=== PATIENT | male | born 1955 | race Caucasian/White ===

== ENCOUNTER 2016-06-20 07:38 | Day surgery (SDC) | payer BC ==
[2016-06-20] MEDS ORDERED: ceFAZolin 2 GM in Premix Bag 1 BAG IV ONE (08:00)
[2016-06-20] MEDS ORDERED: Bupivacaine 0.25%/EPINEPHrine 1:200,000 10 ML SDV INJECT ONE (08:00)
[2016-06-20] MEDS ORDERED: Lactated Ringers 1,000 ML IV SCH (08:00)
[2016-06-20] MEDS ORDERED: Dexamethasone/Tobramycin 0.1-0.3% Ophth Oint 3.5 GM Tube EYEBOTH SCH (08:00)
[2016-06-20] MEDS ORDERED: Acetaminophen/HYDROcodone 325-5 MG Tab PO PRN (08:00)
--- NOTE | 2016-06-20 08:26 | PCM.PREANE ---
Preanesthetic Assessment - Anesthesia/Transfusion/Family Hx Anesthesia History: Prior Anesthesia Without Reaction Transfusion History: No Prior Transfusion(s) Intubation History: Unknown - Review of Systems General: No Symptoms Pulmonary: No Symptoms Cardiovascular: No Symptoms Gastrointestinal: No symptoms Neurological: No Symptoms Other: Reports: None - Physical Assessment Height: 5 ft 8 in Weight: 155 lb ASA Class: 1 Mental Status: Alert & Oriented x3 Airway Class: Mallampati = 1 Dentition: Reports: Normal Dentition Thyro-Mental Finger Breadths: 3 Mouth Opening Finger Breadths: 3 ROM/Head Extension: Full Lungs: Clear to auscultation, Normal respiratory effort Cardiovascular: Regular Rate, Regular Rhythm, No Murmurs - Allergies Allergies/Adverse Reactions: Allergies Allergy/AdvReac Type Severity Reaction Status Date / Time No Known Allergies Allergy Verified 06/17/16 11:07 - Blood Blood Available: No Product(s) Available: None - Acknowledgements Anesthesia Type Planned: MAC (local by surgeon) Pt an Appropriate Candidate for the Planned Anesthesia: Yes Alternatives and Risks of Anesthesia Discussed w Pt/Guardian: Yes Pt/Guardian Understands and Agrees with Anesthesia Plan: Yes Additional Comments: Understands delay for frozen section ensuring excision margins. PreAnesthesia Questionnaire - Past Health History Medical/Surgical History: Denies Medical/Surgical History HEENT History: Reports: Allergic rhinitis Other HEENT History: wears glasses Cardiovascular History: Reports: None Respiratory History: Reports: None Gastrointestinal History: Reports: None Genitourinary History: Reports: Renal calculus Other Genitourinary History: passed without intervention Musculoskeletal History: Reports: Other (see below) Other Musculoskeletal History: shoulder pain Neurological History: Reports: Brain injury, Headaches, chronic Other Neuro History: headaches at the time of subdural hematoma Psychiatric History: Reports: None Endocrine/Metabolic History: Reports: None Hematologic History: Reports: None Immunologic History: Reports: None Oncologic (Cancer) History: Reports: None Dermatologic History: Reports: None - Past Surgical History Head Surgeries/Procedures: Reports: None HEENT Surgical History: Reports: LASIK, Naso-sinus surgery Cardiovascular Surgical History: Reports: None Respiratory Surgical History: Reports: None GI Surgical History: Reports: Appendectomy Male Surgical History: Reports: None Endocrine Surgical History: Reports: None Neurological Surgical History: Reports: Other (see below) Other Neurological Surgeries/Procedures: drainage of a Subdural Hematoma in 2010 Musculoskeletal Surgical History: Reports: None Oncologic Surgical History: Reports: None Dermatological Surgical History: Reports: None - SUBSTANCE USE Smoking Status *Q: Never Smoker Tobacco Use Within Last Twelve Months: No Second Hand Smoke Exposure: No Days Per Week of Alcohol Use: 0 Recreational Drug Use History: No - HOME MEDS Home Medications: Home Meds Aspirin [Adult Low Dose Aspirin EC] 81 mg PO DAILY 06/17/16 [History] Tadalafil [Cialis] 5 mg PO ASDIRECTED PRN 06/17/16 [History] - CURRENT (IN HOUSE) MEDS Current Meds: Current Medications Hydrocodone Bitart/Acetaminophen (Harrah 325-5 Mg) 1 tab PO Q4H PRN PRN Reason: Pain Lactated Ringer's (Ringers, Lactated) 1,000 mls @ 125 mls/hr IV ASDIRECTED DENISE Cefazolin Sodium/Dextrose 2 gm (/ Premix) 50 mls @ 100 mls/hr IV ONETIME ONE Stop: 06/20/16 08:29 Tobramycin/Dexamethasone (Tobradex Ophth Oint) 1 gm EYEBOTH Q4H DENISE Discontinued Medications Bupivacaine HCl/Epinephrine Bitart (Marcaine 0.25%/Epinephrine 1:200,000) 10 ml INJECT ONETIME ONE Stop: 06/20/16 08:01 Preanesthetic Assessment - ANESTHESIA/TRANSFUSION/FAMILY HX Family History of Anesthesia Reaction: No - PHYSICAL ASSESSMENT Height: 5 ft 8 in Weight: 155 lb - ALLERGIES Allergies/Adverse Reactions: Allergies Allergy/AdvReac Type Severity Reaction Status Date / Time No Known Allergies Allergy Verified 06/17/16 11:07
[2016-06-20] MEDS ORDERED: Ondansetron 4 MG/2 ML SDV ONE (08:32)
[2016-06-20] MEDS ORDERED: fentaNYL 100 MCG/2 ML SDV ONE ×2 (08:33→09:04)
[2016-06-20] MEDS ORDERED: Midazolam 1 MG/ML 2 ML SDV ONE ×2 (08:33→09:28)
[2016-06-20] MEDS ORDERED: Propofol 200 MG/20 ML SDV ONE ×2 (08:33)
[2016-06-20] MEDS ORDERED: Bupivacaine 0.25%/EPINEPHrine 1:200,000 10 ML SDV ONE (08:41)
[2016-06-20] MEDS ORDERED: Tetracaine 0.5% Ophth Soln 15 ML Bottle ONE (08:42)
[2016-06-20] MEDS ORDERED: Dexamethasone/Tobramycin 0.1-0.3% Ophth Oint 3.5 GM Tube ONE (09:14)
[2016-06-20] MEDS ORDERED: Dexamethasone 4 MG/ML 5 ML MDV ONE (09:15)
--- NOTE | 2016-06-20 10:19 | PCM.POSTAN ---
POST ANESTHESIA ASSESSMENT - MENTAL STATUS Mental Status: alert, oriented - RESPIRATORY Respiratory Status: respiratory rate WNL, airway patent, O2 saturation stable - CARDIOVASCULAR CV Status: pulse rate WNL, blood pressure stable - GASTROINTESTINAL GI Status: no symptoms - PAIN Pain Score: 0 - POST OP HYDRATION Hydration Status: adequate & stable
--- NOTE | 2016-06-20 11:19 | PCM48HPAN ---
Post Anesthesia Note - EVALUATION WITHIN 48HRS OF ANESTHETIC Vital Signs in Normal Range: Yes Patient Participated in Evaluation: Yes Respiratory Function Stable: Yes Airway Patent: Yes Cardiovascular Function Stable: Yes Hydration Status Stable: Yes Pain Control Satisfactory: Yes Nausea and Vomiting Control Satisfactory: Yes Mental Status Recovered: Yes - COMMENTS/OBSERVATIONS Free Text/Narrative:: Soon to go home escorted by his !
[2016-06-20 12:26] VITALS: BP 97/60
--- NOTE | 2016-06-20 15:51 | PCM.OPNOTE ---
- General Post-Op/Procedure Note Date of Surgery/Procedure: 06/20/16 Operative Procedure(s): excision of right lower eyelid basal cell with wedge excision closure 1.5cm Pre Op Diagnosis: lower right eyelid basal cell 1cm Post-Op Diagnosis: Same Anesthesia Technique: Local, MAC Primary Surgeon: Ashley Hua Apartment Property Manager: Marnie Olson Complications: None Condition: Good Free Text/Narrative:: [id number]
--- NOTE | 2016-06-20 17:09 | PCM.HP ---
H&P History of Present Illness - General Date of Service: 06/20/16 Admit Problem/Dx: basal cell right lower lid. history reviewed and unchanged from recent clinic visit just outside of 30 days. Source of Information: Patient History Limitations: Reports: No limitations - History of Present Illness Initial Comments - Free Text/Narative: basal cell right lower lid Onset of Symptoms: Reports: gradual Right Eye Pain Score (Numeric/FACES): 0 - Related Data Allergies/Adverse Reactions: Allergies Allergy/AdvReac Type Severity Reaction Status Date / Time No Known Allergies Allergy Verified 06/17/16 11:07 Home Medications: Home Meds Aspirin [Adult Low Dose Aspirin EC] 81 mg PO DAILY 06/17/16 [History] Tadalafil [Cialis] 5 mg PO ASDIRECTED PRN 06/17/16 [History] Acetaminophen/HYDROcodone [Palmer 325-5 MG] 1 tab PO Q4H PRN #30 tablet 06/20/16 [Rx] Dexamethasone/Tobramycin [Tobradex Ophth Oint] 1 gm EYEBOTH Q4H tube 06/20/16 [ Rx] Past Medical History - Past Health History Medical/Surgical History: Denies Medical/Surgical History HEENT History: Reports: Allergic rhinitis Other HEENT History: wears glasses Cardiovascular History: Reports: None Respiratory History: Reports: None Gastrointestinal History: Reports: None Genitourinary History: Reports: Renal calculus Other Genitourinary History: passed without intervention Musculoskeletal History: Reports: Other (see below) Other Musculoskeletal History: shoulder pain Neurological History: Reports: Brain injury, Headaches, chronic Other Neuro History: headaches at the time of subdural hematoma Psychiatric History: Reports: None Endocrine/Metabolic History: Reports: None Hematologic History: Reports: None Immunologic History: Reports: None Oncologic (Cancer) History: Reports: None Dermatologic History: Reports: None - Infectious Disease History Infectious Disease History: Reports: None - Past Surgical History Head Surgeries/Procedures: Reports: None HEENT Surgical History: Reports: LASIK, Naso-sinus surgery Cardiovascular Surgical History: Reports: None Respiratory Surgical History: Reports: None GI Surgical History: Reports: Appendectomy Male Surgical History: Reports: None Endocrine Surgical History: Reports: None Neurological Surgical History: Reports: Other (see below) Other Neurological Surgeries/Procedures: drainage of a Subdural Hematoma in 2010 Musculoskeletal Surgical History: Reports: None Oncologic Surgical History: Reports: None Dermatological Surgical History: Reports: None Social & Family History - Tobacco Use Smoking Status *Q: Never Smoker Second Hand Smoke Exposure: No - Alcohol Use Days Per Week of Alcohol Use: 0 - Recreational Drug Use Recreational Drug Use: No Drug Use in Last 12 Months: No H&P Review of Systems - Review of Systems: Review Of Systems: See Below General: Reports: no symptoms HEENT: Reports: no symptoms Pulmonary: Reports: No Symptoms Cardiovascular: Reports: no symptoms Musculoskeletal: Reports: no symptoms Skin: Reports: wound Psychiatric: Reports: no symptoms Neurological: Reports: No Symptoms Immunologic: Reports: no symptoms Exam - Exam Exam: See Below - Vital Signs Vital Signs: Last Vital Signs Temp 97.9 F 06/20/16 09:56 Pulse 70 06/20/16 10:44 Resp 16 06/20/16 10:44 BP 97/60 06/20/16 10:44 Pulse Ox 95 06/20/16 10:44 Weight: 155 lb - Exam General: alert, oriented, cooperative HEENT: EOMI Lungs: Clear to auscultation, Normal respiratory effort Cardiovascular: regular rate, regular rhythm Abdomen: soft Extremities: normal inspection Skin: warm, dry, wound (right lower lid medical basal cell 1cmx0,5cm) Neuro Extensive - Mental Status: alert, oriented x3 Psychiatric: alert, normal affect, normal mood *Q Meaningful Use (ADM) - VTE *Q VTE Criteria *Q: - VTE Risk Assess *Q Each Risk Factor Represents 1 Point: Minor Surgery Planned Total Score 1 Point Risk Factors: 1 Each Risk Factor Represents 5 Points: None Total Score 5 Point Risk Factors: 0 - Stroke *Q Stroke Criteria *Q: - AMI *Q AMI Criteria *Q: - Problem List (1) 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
--- NOTE | 2016-06-20 21:40 | OR ---
SURGEON: LUIS MIGUEL GOMEZ MD DATE OF PROCEDURE: 06/20/2016 PREOPERATIVE DIAGNOSIS: Right lower lid basal cell carcinoma. POSTOPERATIVE DIAGNOSIS: Right lower lid basal cell carcinoma. PROCEDURE: Wedge excision of right lower eyelid basal cell carcinoma with complex repair of lower eyelid margin, tarsus, conjunctiva, and skin, 1 cm total length. PHARMACY ACCOUNT DIRECTOR: Marnie Olson. INDICATIONS: Mr. Mishra is a 61-year-old gentleman with basal cell carcinoma to the medial right lower lid. Risks and benefits of excision were discussed. He was in agreement to proceed. Risks were including, but not limited to, bleeding, infection, damage to underlying or overlying structures, possible need for future interventions and possible scarring. PROCEDURE IN DETAIL: After informed consent were obtained and placed on the chart, the patient was brought to the operating theater and laid in the supine position. After adequate anesthesia, the area was prepped and draped, and a time-out was completed to confirm side and site. Once confirmed, attention was then paid to excision of the basal cell on the right medial lower eyelid. This was sent for pathology and frozen sections were negative. Unfortunately, it did involve a portion of the eyelid margin and thus a wedge excision for reconstruction was selected. For a total length of 1 cm, wedge excision was performed on the right lower eyelid. The margins were then reapproximated using deep 5-0 Monocryl stitches for the tarsus and muscular layers. Once reapproximated, attention was then paid to the skin, which was done using a 5-0 fast-absorbing gut starting at the tyler line. Once adequately reapproximated, the skin from the lower eyelid had been advanced to help with skin coverage. The wound was dressed with TobraDex ointment. The patient tolerated the procedure well. All counts of needles were correct at the end the case. Frozen sections demonstrated basal cell carcinoma with all margins clear. FOLLOWUP INSTRUCTIONS: The patient will see us next week in clinic, sooner with any problems, questions, or concerns. MELISSA / YUKI /[id number]
== END 2016-06-20 11:29 | disposition home or self-care (01) ==
LOC: MW.SDS 07:38
PROVIDERS: ATTEND Plastic Surgery
PROC: 08BQ0ZZ Excision of Right Lower Eyelid, Open Approach (ICD-10-PCS; principal; 2016-06-20)
DX: C44.112 Basal cell carcinoma of skin of right eyelid, including canthus (principal); M75.42 Impingement syndrome of left shoulder; Z87.442 Personal history of urinary calculi; Z79.82 Long term (current) use of aspirin; Z79.899 Other long term (current) drug therapy; Z90.49 Acquired absence of other specified parts of digestive tract; Z98.890 Other specified postprocedural states
CPT/HCPCS: 15820; 88305; 88331; A9270; J1100; J2250; J2405; J3010; J7120; 00103; J2704

== ENCOUNTER 2018-10-01 11:22 | Day surgery (SDC) | payer BC ==
[~2018-10-01 11:22] MED LIST: Glycopyrrolate 0.2 MG/ML SDV ONE; Lactated Ringers 1,000 ML IV SCH; Lidocaine 2% 5 ML SDV ONE
[2018-10-01] MEDS ORDERED: Midazolam 1 MG/ML 2 ML SDV ONE (11:49)
[2018-10-01] MEDS ORDERED: Propofol 200 MG/20 ML SDV ONE ×2 (11:50→11:51)
--- NOTE | 2018-10-01 12:22 | PCM.PREANE ---
Preanesthetic Assessment - Anesthesia/Transfusion/Family Hx Anesthesia History: Prior Anesthesia Without Reaction Family History of Anesthesia Reaction: No Transfusion History: No Prior Transfusion(s) Intubation History: Unknown - Review of Systems General: No Symptoms Pulmonary: No Symptoms Cardiovascular: No Symptoms Gastrointestinal: No Symptoms, Other (screening) Neurological: No Symptoms Other: Reports: None - Physical Assessment Height: 5 ft 8 in Weight: 69.853 kg ASA Class: 1 Mental Status: Alert & Oriented x3 Airway Class: Mallampati = 2 Dentition: Reports: Normal Dentition Thyro-Mental Finger Breadths: 3 Mouth Opening Finger Breadths: 2 ROM/Head Extension: Full Lungs: Clear to Auscultation, Normal Respiratory Effort Cardiovascular: Regular Rate, Regular Rhythm - Allergies Allergies/Adverse Reactions: Allergies Allergy/AdvReac Type Severity Reaction Status Date / Time No Known Allergies Allergy Verified 09/24/18 15:35 - Blood Blood Available: No - Anesthesia Plan Pre-Op Medication Ordered: None - Acknowledgements Anesthesia Type Planned: MAC Pt an Appropriate Candidate for the Planned Anesthesia: Yes Alternatives and Risks of Anesthesia Discussed w Pt/Guardian: Yes Pt/Guardian Understands and Agrees with Anesthesia Plan: Yes PreAnesthesia Questionnaire - Past Health History Medical/Surgical History: Denies Medical/Surgical History HEENT History: Reports: Allergic Rhinitis Other HEENT History: wears glasses Cardiovascular History: Reports: None Respiratory History: Reports: None Gastrointestinal History: Reports: None Genitourinary History: Reports: Renal Calculus Other Genitourinary History: hx of 1 kidney stone- passed it Musculoskeletal History: Reports: Fracture Other Musculoskeletal History: hx of fx hand Neurological History: Reports: Head Trauma, Other (See Below) Other Neuro History: hx of motion sickness Psychiatric History: Reports: None Endocrine/Metabolic History: Reports: None Hematologic History: Reports: None Immunologic History: Reports: None Oncologic (Cancer) History: Reports: Basal Cell Carcinoma Dermatologic History: Reports: None - Infectious Disease History Infectious Disease History: Reports: None - Past Surgical History HEENT Surgical History: Reports: Naso-Sinus Surgery, Other (See Below) Other HEENT Surgeries/Procedures: Herlinda holes for Subdural Hematoma, Basal cell removed from right lower eyelid GI Surgical History: Reports: Appendectomy, Colonoscopy (10 years ago- negative) Neurological Surgical History: Reports: Other (See Below) Other Neurological Surgeries/Procedures: hx of Dolores Holes for subdural hematoma Dermatological Surgical History: Reports: Skin Biopsy - SUBSTANCE USE Smoking Status *Q: Never Smoker Recreational Drug Use History: No - HOME MEDS Home Medications: Home Meds Aspirin [Adult Low Dose Aspirin EC] 81 mg PO DAILY 06/17/16 [History] Tadalafil [Cialis] 5 mg PO ASDIRECTED PRN 06/17/16 [History] Fluticasone Propionate [Flonase Allergy Relief] 2 spray NASBOTH DAILY PRN [History] - CURRENT (IN HOUSE) MEDS Current Meds: Current Medications Lactated Ringer's (Ringers, Lactated) 1,000 mls @ 125 mls/hr IV ASDIRECTED DENISE Discontinued Medications Glycopyrrolate (Robinul) Confirm Administered Dose 0.2 mg .ROUTE .STK-MED ONE Stop: 10/01/18 11:13 Lidocaine (Xylocaine-Mpf 2%) Confirm Administered Dose 5 ml .ROUTE .STK-MED ONE Stop: 10/01/18 11:13 Midazolam HCl (Versed 1 Mg/Ml) Confirm Administered Dose 2 mg .ROUTE .STK-MED ONE Stop: 10/01/18 11:50 Propofol (Diprivan 20 Ml) Confirm Administered Dose 200 mg .ROUTE .STK-MED ONE Stop: 10/01/18 11:51 Propofol (Diprivan 20 Ml) Confirm Administered Dose 200 mg .ROUTE .STK-MED ONE Stop: 10/01/18 11:52
--- NOTE | 2018-10-01 13:39 | PCM.OPNOTE ---
- General Post-Op/Procedure Note Date of Surgery/Procedure: 10/01/18 Operative Procedure(s): Colonoscopy Pre Op Diagnosis: Desire for colorectal cancer screening Post-Op Diagnosis: No evidence of neoplasia Anesthesia Technique: MAC (ASA I) Primary Surgeon: Han Pedro Condition: Good Free Text/Narrative:: Intake & Output 10/01/18 10/01/18 10/01/18 03:59 11:59 19:59 Intake Total 750 Balance 750 DICTATION [id number] CPT CODE [id number]
[2018-10-01] MEDS ORDERED: Lactated Ringers 1,000 ML IV SCH (13:45)
[2018-10-01 14:08] VITALS: BP 112/73
--- NOTE | 2018-10-01 16:02 | OR ---
SURGEON: Han Pedro M.D. DATE OF PROCEDURE: 10/01/2018 OPERATION PERFORMED: Colonoscopy. PRIMARY SURGEON: Han Pedro MD. ANESTHESIA: MAC. ASA CLASSIFICATION: I. PREOPERATIVE DIAGNOSIS: Desire for colorectal cancer screening. POSTOPERATIVE DIAGNOSIS: No evidence of neoplasia. DESCRIPTION OF PROCEDURE: The patient was taken to the endoscopy room and positioned on the endoscopy table in the left lateral decubitus position. Time-out was called for appropriate identification of the patient and procedure. Monitored anesthesia care was provided. The colonoscope was inserted into the rectum and advanced without difficulty to the cecum where the colonoscope was retroflexed to visualize the ascending colon from below. The colonoscope was then straightened and slowly withdrawn. The cecum, ascending colon, hepatic flexure, transverse colon, splenic flexure, descending colon, sigmoid colon, and rectum were very well visualized. No tumors, polyps, diverticula, or angiodysplastic changes were noted anywhere throughout the gastrointestinal tract. Once the colonoscope was withdrawn to the rectum, it was retroflexed to visualize the anal orifice from above. Again, no tumors or polyps were seen. There were no acute hemorrhoidal changes. The colonoscope was then straightened, the rectum aspirated, and the colonoscope removed. The patient tolerated the procedure well and was taken to recovery room in stable condition. LIZZY / YUKI /[id number]
== END 2018-10-01 14:00 | disposition home or self-care (01) ==
LOC: MW.SDS 11:22
PROVIDERS: ATTEND Surgery
DX: Z12.11 Encounter for screening for malignant neoplasm of colon (principal); C44.1122 Basal cell carcinoma of skin of right lower eyelid, including canthus; Z90.49 Acquired absence of other specified parts of digestive tract; Z98.890 Other specified postprocedural states; Z79.82 Long term (current) use of aspirin; Z79.899 Other long term (current) drug therapy
CPT/HCPCS: 45378; J2001; J2250; J2704; J3490